=== PATIENT | female | born 1980 | race Caucasian/White ===

== ENCOUNTER 2017-04-07 18:38 | Emergency (ER) | payer OTHER ==
[2017-04-07 19:01] VITALS: PULSE 70; RESP 18; TEMP 97.7; O2SAT 98
[2017-04-07] MEDS ORDERED: KETOROLAC TROMETHAMINE 30 MG/ML SOL IM ONE (19:14)
[2017-04-07] MEDS ORDERED: KETOROLAC TROMETHAMINE 30 MG/ML SOL ONE (19:38)
[2017-04-07 19:49] VITALS: BP 104/62
== END 2017-04-07 20:45 | disposition home or self-care (01) | DRG 552 ==
LOC: ED 18:38
DX: M54.6 Pain in thoracic spine (principal)
CPT/HCPCS: 99282; J1885

== ENCOUNTER 2017-06-20 17:56 | Emergency (ER) | payer OTHER ==
[2017-06-20 18:26] VITALS: BP 97/62; PULSE 71; RESP 20; TEMP 98.4; O2SAT 100
[2017-06-20] MEDS ORDERED: KETOROLAC TROMETHAMINE 30 MG/ML SOL ONE (18:47)
[2017-06-20] MEDS ORDERED: KETOROLAC TROMETHAMINE 30 MG/ML SOL IM ONE (18:47)
== END 2017-06-20 19:05 | disposition left against medical advice (07) | DRG 556 ==
LOC: ED 17:56
DX: M79.602 Pain in left arm (principal)
CPT/HCPCS: 36415; 85378; 99282; J1885